=== PATIENT | female | born 1985 | race Caucasian/White ===

== ENCOUNTER 2017-03-09 02:14 | Emergency (ER) | payer BC ==
[~2017-03-09] VITALS: Ht 157.5 cm; Wt 59.0 kg
[2017-03-09] MEDS ORDERED: ZOLOFT25 MG PO (02:31)
[2017-03-09 02:35] LABS: ABSOLUTE NEUTROPHILS 14.5 thou/uL (1.4-8.2); BASOPHILS 0.2 % (0.0-2.0); EOSINOPHILS 0.9 % (0.0-3.0); HEMATOCRIT 40.6 % (37.0-47.0); HEMOGLOBIN 13.4 gm/dL (12.0-15.0); LYMPHOCYTES 7.7 % (24.0-44.0); MCH 27.7 pg (26.0-34.0); MONOCYTES 6.7 % (1.0-8.0); PLATELET COUNT 367 thou/uL (150-400); POLYS 84.5 % (36.0-66.0); RBC 4.84 mil/uL (4.20-5.00); RDW 12.6 % (10.5-14.5); WBC 17.1 thou/uL (4.0-11.0)
[2017-03-09 02:38] LABS: MANUAL DIFF NO
[2017-03-09 02:43] LABS: ANION GAP 11 mmol/L (7-16); BUN 17 mg/dL (7-18); CALCIUM 9.4 mg/dL (8.5-10.1); CHLORIDE 103 mmol/L (98-107); CO2 25 mmol/L (21-32); CREATININE 0.6 mg/dL (0.6-1.0); GLUCOSE 189 mg/dL (74-106); POTASSIUM 3.8 mmol/L (3.5-5.1); SODIUM 139 mmol/L (136-145)
[2017-03-09 02:49] LABS: ALBUMIN 4.5 g/dL (3.4-5.0); ALKALINE PHOSPHATASE 110 U/L (46-116); DIRECT BILIRUBIN < 0.1 mg/dL (<0.1-0.3); SGOT 31 U/L (15-37); SGPT 32 U/L (30-65); TOTAL BILIRUBIN 0.6 mg/dL (<0.1-1.0); TOTAL PROTEIN 7.9 g/dL (6.4-8.2)
[2017-03-09] MEDS ORDERED: PHENERGAN 25 MG25 M1 PO (03:05)
[2017-03-09] MEDS ORDERED: PROMS25 WY RECTAL (03:05)
[2017-03-09] MEDS ORDERED: ZOFRAN ODT4 MG PO (03:05)
[2017-03-09 03:44] VITALS: BP 99/46
== END 2017-03-09 03:47 | disposition home or self-care (01) ==
LOC: ER 02:14
PROVIDERS: Emergency Medicine
DX: R11.2 Nausea with vomiting, unspecified (principal); R10.9 Unspecified abdominal pain; R19.7 Diarrhea, unspecified; D72.829 Elevated white blood cell count, unspecified